=== PATIENT | male | born 1975 | race Caucasian/White ===

== ENCOUNTER → 2016-09-27 | Outpatient (CLI) | payer BC ==
[~2016-09-27] MED LIST: NORCO 325 MG-51 TAB PO
== END ==
LOC: COL.RAD 10:59
DX: M54.2 Cervicalgia (principal); Z98.890 Other specified postprocedural states

== ENCOUNTER → 2017-03-06 | Outpatient (CLI) | payer BC | LOC: COL.RAD 10:50 | DX: M54.2 Cervicalgia (principal); Z98.890 Other specified postprocedural states ==

== ENCOUNTER → 2017-04-12 | Outpatient (CLI) | payer BC | LOC: COL.RAD 11:43 | DX: M54.2 Cervicalgia (principal); Z98.1 Arthrodesis status ==

== ENCOUNTER → 2017-04-17 | Outpatient (CLI) | payer BC | LOC: MHCPAIN 13:21 | DX: G89.29 Other chronic pain (principal); M47.27 Other spondylosis with radiculopathy, lumbosacral region; R51 Headache; M96.1 Postlaminectomy syndrome, not elsewhere classified | CPT/HCPCS: G0463 ==

== ENCOUNTER → 2017-05-24 | Outpatient (CLI) | payer BC | LOC: MHCPAIN 11:41 | DX: M50.33 Other cervical disc degeneration, cervicothoracic region (principal) ==

== ENCOUNTER → 2017-06-06 | Outpatient (CLI) | payer BC | LOC: MHCPAIN 07:52 | DX: G89.29 Other chronic pain (principal); M50.13 Cervical disc disorder with radiculopathy, cervicothoracic region; R51 Headache | CPT/HCPCS: G0463 ==

== ENCOUNTER → 2017-07-12 | Outpatient (CLI) | payer BC | LOC: MHCPAIN 14:46 | DX: M50.33 Other cervical disc degeneration, cervicothoracic region (principal) ==

== ENCOUNTER → 2017-07-20 | Outpatient (CLI) | payer BC | LOC: MHCPAIN 10:28 | DX: G89.29 Other chronic pain (principal); R51 Headache; M96.1 Postlaminectomy syndrome, not elsewhere classified; M50.33 Other cervical disc degeneration, cervicothoracic region | CPT/HCPCS: G0463 ==

== ENCOUNTER → 2017-08-22 | Outpatient (CLI) | payer BC | LOC: MHCPAIN 14:41 | DX: M50.323 Other cervical disc degeneration at C6-C7 level (principal) | CPT/HCPCS: J1100; J2250; J3010 ==

== ENCOUNTER → 2017-11-15 | Outpatient (CLI) | payer BC | LOC: MHCPAIN 13:00 | DX: M50.323 Other cervical disc degeneration at C6-C7 level (principal) | CPT/HCPCS: J1100; J2250; J3010 ==

== ENCOUNTER → 2018-04-09 | Outpatient (CLI) | payer BC | LOC: MHCPAIN 10:55 | DX: G89.29 Other chronic pain (principal); M50.90 Cervical disc disorder, unspecified, unspecified cervical region; M54.12 Radiculopathy, cervical region; M54.81 Occipital neuralgia; R51 Headache | CPT/HCPCS: G0463 ==

== ENCOUNTER → 2018-04-15 | Outpatient (CLI) | payer BC | LOC: MHCPAIN 10:45 | DX: M54.12 Radiculopathy, cervical region (principal); M50.90 Cervical disc disorder, unspecified, unspecified cervical region ==

== ENCOUNTER → 2018-05-23 | Outpatient (CLI) | payer BC | LOC: MHCPAIN 05-22 10:36 | DX: M47.812 Spondylosis without myelopathy or radiculopathy, cervical region (principal); M54.12 Radiculopathy, cervical region; M50.90 Cervical disc disorder, unspecified, unspecified cervical region | CPT/HCPCS: J1100; J2250; J3010 ==

== ENCOUNTER → 2018-07-24 | Outpatient (CLI) | payer BC | LOC: MHCPAIN 08:12 | DX: G89.29 Other chronic pain (principal); M54.12 Radiculopathy, cervical region; R51 Headache; M47.812 Spondylosis without myelopathy or radiculopathy, cervical region | CPT/HCPCS: G0463 ==

== ENCOUNTER → 2018-09-24 | Outpatient (CLI) | payer BC | LOC: MHCPAIN 09:32 | DX: G89.29 Other chronic pain (principal); M54.12 Radiculopathy, cervical region; M54.81 Occipital neuralgia; R51 Headache; M47.812 Spondylosis without myelopathy or radiculopathy, cervical region; M96.1 Postlaminectomy syndrome, not elsewhere classified | CPT/HCPCS: G0463 ==

== ENCOUNTER → 2019-01-20 | Outpatient (CLI) | payer BC | LOC: MHCPAIN 10:34 | DX: G89.29 Other chronic pain (principal); M54.12 Radiculopathy, cervical region; R51 Headache; M47.812 Spondylosis without myelopathy or radiculopathy, cervical region | CPT/HCPCS: G0463 ==